=== PATIENT | male | born 1955 | race Two or more races ===

== ENCOUNTER 2016-07-22 15:16 | Inpatient (IN) | payer MEDICARE, OTHER ==
[~2016-07-22] VITALS: Ht 188 cm; Wt 121.1 kg
[2016-07-22 15:45] VITALS: BP 130/87
--- NOTE | 2016-07-22 15:45 | NUR ---
ADMISSION NOTES/ PATIENT DIRECT ADMIT BROUGHT BY AMBULANCE, 60 Y/OLD ON 5150 HOLD DX OF SCHIZOPHRENIA, PSYCHOSIS NOS, GD. ACCORDING ON HOLD PATIENT NOT TAKING MEDICATION AT HOME, GD. V/S TAKE BP-139/87, P-85, T-98, O2-98 ROOM AIR, R-19. ON FACE TO FACE ASSESSMENT PATIENT A/O X3, NO RESPIRATORY DISTRESS. RAMBLING WHEN TALKS, ANXIOUS, ADMINISTERED ATIVAN 1 MG PO PRN, SKIN ASSESSMENT DONE, PICTURE TAKEN, MRSA OF NARES SWAB TAKEN, NEEDS ATTENDED AND ANTICIPATED. PATIENT HAS POOR MOBILITY, USING URINAL, CALL GARCIA NEAR TO REACH, SIDE RAILS UP X3. DR BEY, AND DR GUPTA AWARE OF NEW PATIENT , AND NEW MEDICATION. CONTINUED MONITORING.
[2016-07-22] MEDS ORDERED: MAGNESIUM HYDROXIDE 30 ML UDC PO PRN (16:00)
[2016-07-22] MEDS ORDERED: MAG HYDROX/AL HYDROX/SIMETH 30 ML UDC PO PRN (16:00)
[2016-07-22] MEDS: LORAZEPAM 0.5 MG TABLET PO PRN (16:44)
--- NOTE | 2016-07-22 16:44 | NUR ---
ADMINISTERED ATIVAN 1 MG PO PRN FOR ANXIETY, PARANOIA, PRESCRIBED, V/S TAKEN BP-130/87, P-98, CONTINUED MONITORING.
[2016-07-22] MEDS ORDERED: ATEN50TA PO (17:29)
[2016-07-22] MEDS ORDERED: DIVA500T7 PO (17:29)
[2016-07-22] MEDS ORDERED: BENZ1TAB7 PO (17:29)
[2016-07-22] MEDS ORDERED: HYDR-552 PO (17:29)
[2016-07-22] MEDS ORDERED: LOSA1TAB39 PO (17:29)
[2016-07-22] MEDS ORDERED: RIVA10TA PO (17:29)
[2016-07-22] MEDS ORDERED: OLAN15TA3 PO (17:29)
[2016-07-22] MEDS ORDERED: ASPI-991 PO (17:29)
[2016-07-22] MEDS ORDERED: FURO20TA4 PO (17:29)
[2016-07-22] MEDS ORDERED: Z GUARD REMEDY 2 OZ OINT TP PRN (18:00)
[2016-07-22 20:00] VITALS: BP 141/81
--- NOTE | 2016-07-22 20:00 | NUR ---
RN INITIAL NOTE; PT ON THE BED RESTING WITHOUT ANY DISTRESS . ALERT/ ORIENTED X 2-3 , BREATHING EVEN AND UNLABORED . DENIED ANY PAIN AT THIS TIME. BED IN THE LOWEST/LOCKED POSITION . SAFETY MEASURES APPLIED. WILL CONTINUE TO MONITOR .
[2016-07-22 20:18] VITALS: BP 141/81
--- NOTE | 2016-07-23 06:30 | NUR ---
GPS RN: ALICE [phone]- ATUL WHITLOCK- PATIENT'S SISTER TO NOTIFY REGARDING PATIENT'S ADMISSION. NO ANSWER. NO PROMPT FOR LEAVING VOICEMAIL MESSAGES. WILL ENDORSE TO DAY SHIFT NURSE.
[2016-07-23 06:43] LABS: BASOPHILS % (AUTO) 0.4 % (0.0-2.0); EOSINOPHILS # (AUTO) 0.6 /CMM (0.0-0.7); HEMATOCRIT 34 % (39-51); HEMOGLOBIN 11.1 g/dL (13.5-17.5); LYMPHOCYTES # (AUTO) 1.6 /CMM (0.8-4.8); LYMPHOCYTES % (AUTO) 26.2 % (20.0-44.0); MEAN CORPUSCULAR HEMOGLOBIN 27 PG (26.0-33.0); MEAN CORPUSCULAR HGB CONC 33 g/dl (31.0-36.0); MEAN CORPUSCULAR VOLUME 81 fL (80-96); MONOCYTES # (AUTO) 0.6 /CMM (0.1-1.30); MONOCYTES % (AUTO) 8.9 % (2.0-12.0); NEUTROPHILS # (AUTO) 3.4 /CMM (1.8-8.9); NEUTROPHILS % (AUTO) 54.5 % (43.0-81.0); PLATELET COUNT (AUTO) 350 /CMM (150-450); RDW COEFFICIENT OF VARIATION 16.2 (11.5-15.0); WHITE BLOOD COUNT (AUTO) 6.3 K/uL (4.3-11.0)
--- NOTE | 2016-07-23 06:57 | NUR ---
RN EOS NOTE; NO ANY CHANGE OF CONDITION NOTED DURING THE SHIFT . WILL ENDORSE THE NEXT SHIFT RN FOR CONTINUITY OF CARE .
[2016-07-23 07:00] LABS: BILIRUBIN,TOTAL 0.7 mg/dL (0.2-1.0); CALCIUM, SERUM 8.6 mg/dL (8.5-10.1); CREATININE 0.7 mg/dL (0.6-1.3); POTASSIUM 3.6 mmol/L (3.5-5.1); TOTAL PROTEIN, SERUM 6.6 g/dL (6.4-8.2)
[2016-07-23 07:02] LABS: CHOLESTEROL 146 mg/dL (<200); HDL CHOLESTEROL 34 mg/dL (40-60); LDL 84 mg/dL (0-99); TRIGLYCERIDES 87 mg/dL (30-150)
[2016-07-23 08:00] VITALS: BP 158/89
[2016-07-23] MEDS: LOSARTAN POTASSIUM 50 MG TABLET PO SCH (08:36)
[2016-07-23] MEDS: ASPIRIN EC 81 MG TABLET.DR PO SCH (08:36)
[2016-07-23] MEDS: FUROSEMIDE 20 MG TABLET PO SCH (08:37)
[2016-07-23] MEDS: ATENOLOL 50 MG TABLET PO SCH ×2 (08:37→17:55)
[2016-07-23] MEDS: HYDROCHLOROTHIAZIDE 25 MG TABLET PO SCH (08:38)
[2016-07-23] MEDS ORDERED: Medication Not On Formulary EA (Losartan/Hydrochlorothiazide (Losartan-Hctz 100-25 Mg Ta PO SCH (09:00)
[2016-07-23] MEDS ORDERED: OLANZAPINE 5 MG TABLET PO SCH (12:00)
[2016-07-23] MEDS: BENZTROPINE MESYLATE (1 MG) 1 MG TABLET PO SCH (12:55)
[2016-07-23] MEDS: OLANZAPINE 5 MG TABLET PO SCH ×2 (12:55→17:53)
[2016-07-23] MEDS ORDERED: DIVALPROEX SODIUM 500 MG TABLET.DR PO SCH (13:00)
[2016-07-23] MEDS: DIVALPROEX SODIUM 250 MG TABLET.DR PO SCH ×2 (13:00→17:53)
--- NOTE | 2016-07-23 14:50 | NUR ---
Initial DC Plan: Patient resides at [address] [place] [address]; [phone] and wants to return home when ready for discharge. Sw attempted to contact the patient's sister (Lorin Jesus- [phone]) but she was unavailable and SW left a message with her contact details. SW will attempt again at a later time. SW will help form a safe and proper discharge. Patient will be given smoking cessation resources prior to discharge.
[2016-07-23 16:00] VITALS: BP 164/100
[2016-07-23] MEDS: RIVAROXABAN 10 MG TABLET PO SCH (17:54)
[2016-07-23 20:00] VITALS: BP 160/92
[2016-07-23] MEDS: ACETAMINOPHEN 325 MG TABLET PO PRN (21:59)
[2016-07-24 08:00] VITALS: BP 150/98
[2016-07-24] MEDS: LOSARTAN POTASSIUM 50 MG TABLET PO SCH (09:05)
[2016-07-24] MEDS: BENZTROPINE MESYLATE (1 MG) 1 MG TABLET PO SCH (09:05)
[2016-07-24] MEDS: DIVALPROEX SODIUM 250 MG TABLET.DR PO SCH ×3 (09:06→17:00)
[2016-07-24] MEDS: ASPIRIN EC 81 MG TABLET.DR PO SCH (09:06)
[2016-07-24] MEDS: FUROSEMIDE 20 MG TABLET PO SCH (09:06)
[2016-07-24] MEDS: ATENOLOL 50 MG TABLET PO SCH ×2 (09:06→17:00)
[2016-07-24] MEDS: OLANZAPINE 5 MG TABLET PO SCH (09:06)
[2016-07-24] MEDS: HYDROCHLOROTHIAZIDE 25 MG TABLET PO SCH (09:07)
[2016-07-24 16:00] VITALS: BP 125/76
[2016-07-24] MEDS: RIVAROXABAN 10 MG TABLET PO SCH (17:00)
[2016-07-24] MEDS: FLUPHENAZINE HCL 10 MG TABLET PO SCH (17:00)
[2016-07-24 20:56] VITALS: BP 139/83
[2016-07-24] MEDS: HYDROCODONE/APAP 5/325MG 1 EACH TABLET PO PRN (21:41)
[2016-07-25] MEDS: FLUPHENAZINE HCL 10 MG TABLET PO SCH ×2 (08:32→16:22)
[2016-07-25 08:33] VITALS: BP 152/88
[2016-07-25] MEDS: FUROSEMIDE 20 MG TABLET PO SCH (08:33)
[2016-07-25] MEDS: BENZTROPINE MESYLATE (1 MG) 1 MG TABLET PO SCH (08:33)
[2016-07-25] MEDS: DIVALPROEX SODIUM 250 MG TABLET.DR PO SCH ×3 (08:33→16:22)
[2016-07-25] MEDS: LOSARTAN POTASSIUM 50 MG TABLET PO SCH (08:33)
[2016-07-25] MEDS: ATENOLOL 50 MG TABLET PO SCH ×2 (08:33→16:28)
[2016-07-25] MEDS: HYDROCHLOROTHIAZIDE 25 MG TABLET PO SCH (08:33)
[2016-07-25] MEDS: ASPIRIN EC 81 MG TABLET.DR PO SCH (08:33)
--- NOTE | 2016-07-25 09:11 | NUR ---
WOUND CARE CONSULT: PT PRESENTS WITH SCABS AND SCARS, PRESENT ON ADMISSION. PT NOTED TO HAVE VERY DRY THICKENED SKIN TO LOWER LEGS AND FEET. RESOLVING EDEMA NOTED. LEGS ELEVATED. RECOMMENDATIONS MADE FOR EUCERIN CREAM AND SKIN PROTECTION. DISCUSSED WITH NURSING STAFF. WILL SEE PRN. Addendum: 07/25/16 at 0913 by CHARLEEN AMAYA WNDNU Amended: Links added.
[2016-07-25] MEDS ORDERED: MINERAL OIL/PETROLATUM,WHITE 120 GM JAR TP PRN (09:30)
--- NOTE | 2016-07-25 12:19 | NUR ---
Per psychiatrist, patient will be ready for discharge on Saturday. Per the patient, his sister Lorin Jesus ([phone]) is able to pick him up and sw called her but she did not answer. SW left her contact information and will try again at a later time. Patient refusing placement at this time and wants to return to his apartment in [place].
[2016-07-25 15:43] VITALS: BP 134/87
[2016-07-25] MEDS: RIVAROXABAN 10 MG TABLET PO SCH (16:23)
[2016-07-25 19:45] VITALS: BP 145/79
[2016-07-25 19:56] VITALS: BP 145/79
[2016-07-25] MEDS: HYDROCODONE/APAP 5/325MG 1 EACH TABLET PO PRN (22:59)
[2016-07-26 08:00] VITALS: BP 138/79
[2016-07-26] MEDS: HYDROCHLOROTHIAZIDE 25 MG TABLET PO SCH (08:33)
[2016-07-26] MEDS: ATENOLOL 50 MG TABLET PO SCH ×2 (08:34→17:39)
[2016-07-26] MEDS: ASPIRIN EC 81 MG TABLET.DR PO SCH (08:34)
[2016-07-26] MEDS: LOSARTAN POTASSIUM 50 MG TABLET PO SCH (08:34)
[2016-07-26] MEDS: FUROSEMIDE 20 MG TABLET PO SCH (08:34)
[2016-07-26] MEDS: FLUPHENAZINE HCL 10 MG TABLET PO SCH ×2 (08:34→17:38)
[2016-07-26] MEDS: BENZTROPINE MESYLATE (1 MG) 1 MG TABLET PO SCH (08:34)
[2016-07-26] MEDS: DIVALPROEX SODIUM 250 MG TABLET.DR PO SCH ×3 (08:35→17:38)
--- NOTE | 2016-07-26 12:05 | NUR ---
Faxed referral to [facility] ([address] [place] [address] [address] [facility]; FAX: [phone]) and [facility] ([address], [place] [address] FAX: [phone]). SW will follow up.
--- NOTE | 2016-07-26 14:50 | NUR ---
Per CJ at [facility] ([address] [place] [address] [address] [facility]; FAX: [phone]) pt .is accepted pending a note stating that pt. is compliant with medications. LAXMI will fax.
--- NOTE | 2016-07-26 15:28 | NUR ---
Patient denying placement at this time and revisited this with the patient. He is adamantly denying placement and wants to return home.
[2016-07-26 16:15] VITALS: BP 121/70
[2016-07-26] MEDS: RIVAROXABAN 10 MG TABLET PO SCH (17:40)
[2016-07-26] MEDS: HYDROCODONE/APAP 5/325MG 1 EACH TABLET PO PRN (18:09)
--- NOTE | 2016-07-26 18:10 | NUR ---
ADMINISTERED NARCO 5/325 MG PO PRN FOR CHRONIC GENERALIZED PAIN 09/20, PER PATIENT REQUEST, V/S TAKE BP-128/75, P-90, CONTINUED MONITORING.
--- NOTE | 2016-07-26 19:17 | NUR ---
GPS/RN NOTE: PATIENT AWAKE, ALERT, ORIENTED X3, RESPONDS WHEN ENGAGED, INITIATES CONVERSATION. NO ACUTE DISTRESS NOTED.
[2016-07-26 20:00] VITALS: BP 106/65
[2016-07-27] MEDS: TEMAZEPAM 7.5 MG CAPSULE PO PRN ×2 (01:03→21:17)
--- NOTE | 2016-07-27 01:03 | NUR ---
GPS/RN NOTE: PATIENT STILL AWKE, TEMAZEPAM 7.5 MG CAP 1 PO GIVEN.
[2016-07-27 06:42] LABS: BASOPHILS % (AUTO) 0.4 % (0.0-2.0); EOSINOPHILS # (AUTO) 0.8 /CMM (0.0-0.7); EOSINOPHILS % (AUTO) 9.7 % (0.0-6.0); HEMATOCRIT 39 % (39-51); HEMOGLOBIN 12.5 g/dL (13.5-17.5); LYMPHOCYTES # (AUTO) 2.3 /CMM (0.8-4.8); MEAN CORPUSCULAR HEMOGLOBIN 27 PG (26.0-33.0); MEAN CORPUSCULAR HGB CONC 32 g/dl (31.0-36.0); MEAN CORPUSCULAR VOLUME 82 fL (80-96); MONOCYTES # (AUTO) 0.7 /CMM (0.1-1.30); MONOCYTES % (AUTO) 9.2 % (2.0-12.0); NEUTROPHILS # (AUTO) 4.2 /CMM (1.8-8.9); NEUTROPHILS % (AUTO) 52.7 % (43.0-81.0); PLATELET COUNT (AUTO) 351 /CMM (150-450); RDW COEFFICIENT OF VARIATION 16.7 (11.5-15.0); RED BLOOD CELL COUNT(AUTO) 4.71 MIL/uL (4.5-6.0); WHITE BLOOD COUNT (AUTO) 8.1 K/uL (4.3-11.0)
[2016-07-27 06:49] LABS: CALCIUM, SERUM 8.7 mg/dL (8.5-10.1); CREATININE 0.9 mg/dL (0.6-1.3); POTASSIUM 3.9 mmol/L (3.5-5.1)
[2016-07-27 08:00] VITALS: BP 108/63
[2016-07-27] MEDS: DIVALPROEX SODIUM 250 MG TABLET.DR PO SCH ×3 (08:38→17:19)
[2016-07-27] MEDS: BENZTROPINE MESYLATE (1 MG) 1 MG TABLET PO SCH (08:39)
[2016-07-27] MEDS: LOSARTAN POTASSIUM 50 MG TABLET PO SCH (08:39)
[2016-07-27] MEDS: ASPIRIN EC 81 MG TABLET.DR PO SCH (08:39)
[2016-07-27] MEDS: HYDROCHLOROTHIAZIDE 25 MG TABLET PO SCH (08:39)
[2016-07-27] MEDS: FUROSEMIDE 20 MG TABLET PO SCH (08:40)
[2016-07-27] MEDS: FLUPHENAZINE HCL 10 MG TABLET PO SCH ×2 (08:40→17:19)
[2016-07-27] MEDS: ATENOLOL 50 MG TABLET PO SCH ×2 (08:41→17:00)
--- NOTE | 2016-07-27 11:25 | NUR ---
LAXMI met with the patient and he still is refusing placement at this time, stating he wants to go home. LAXMI has been attempting to call the patient's sister Lorin Jesus [phone] however she has been unresponsive and has not called the SW back from the earlier messages left on her voicemail. Patient stated he only has about $80 to contribute to his ride back home and SW to explore transportation options for the patient.
[2016-07-27] MEDS: ACETAMINOPHEN 325 MG TABLET PO PRN (12:30)
--- NOTE | 2016-07-27 12:32 | NUR ---
GPS RN: PATIENT ASKED FOR TYLENOL FOR C/O BACK PAIN RATED 7/10. ADMINISTERED TYLENOL 650MG PO ORDERED. CONTINUE TO MONITOR.
--- NOTE | 2016-07-27 12:38 | NUR ---
Patient scheduled for discharge for Saturday07/27/2016. LAXMI attempted to contact the patient's sister Lorin Jesus once again but was unsuccessful. Patient able to pay $80 for his transport back home and administration ok'd [employer] transportation for this patient (as they will have to pay the remaining of the $150). Spoke to Javi from [employer] who stated that he will work on scheduling the transportation for the patient and will notify LAXMI of the time. Addendum: 07/30/16 at 1121 by MIRZA HAIR Discharged was pushed to 07/31/2016. Will contact [employer] to schedule transportation.
--- NOTE | 2016-07-27 12:47 | NUR ---
Patient informed that he was accepted to [facility] ([address] [place] [address] [address] [facility]; FAX: [phone]) per however he is still refusing placement at this time and wants to go home. [employer] transportation to be arranged for this patient.
--- NOTE | 2016-07-27 12:52 | NUR ---
Followed up with Mitzy from [facility] ([facility] [address], [place] [address] FAX: [phone]) who stated they are unable to accept the patient as he currently has no skilled needs.
[2016-07-27 16:00] VITALS: BP 106/58
[2016-07-27] MEDS: RIVAROXABAN 10 MG TABLET PO SCH (17:21)
[2016-07-27 20:00] VITALS: BP 109/60
[2016-07-27] MEDS: LORAZEPAM 0.5 MG TABLET PO PRN (20:23)
[2016-07-28] MEDS: HYDROCODONE/APAP 5/325MG 1 EACH TABLET PO PRN (01:36)
[2016-07-28 07:52] VITALS: BP 122/76
[2016-07-28] MEDS: FUROSEMIDE 20 MG TABLET PO SCH (08:19)
[2016-07-28] MEDS: BENZTROPINE MESYLATE (1 MG) 1 MG TABLET PO SCH (08:19)
[2016-07-28] MEDS: FLUPHENAZINE HCL 10 MG TABLET PO SCH ×2 (08:19→17:25)
[2016-07-28] MEDS: DIVALPROEX SODIUM 250 MG TABLET.DR PO SCH ×3 (08:19→17:26)
[2016-07-28] MEDS: ACETAMINOPHEN 325 MG TABLET PO PRN (08:19)
[2016-07-28] MEDS: ASPIRIN EC 81 MG TABLET.DR PO SCH (08:19)
[2016-07-28] MEDS: LOSARTAN POTASSIUM 50 MG TABLET PO SCH (08:20)
[2016-07-28] MEDS: HYDROCHLOROTHIAZIDE 25 MG TABLET PO SCH (08:20)
[2016-07-28] MEDS: ATENOLOL 50 MG TABLET PO SCH ×2 (08:20→17:26)
--- NOTE | 2016-07-28 08:20 | NUR ---
GPS RN: PATIENT ASKED FOR TYLENOL FOR C/O BACK PAIN RATED 7/10. ADMINISTERED TYLENOL 650MG PO ORDERED. CONTINUE TO MONITOR.
[2016-07-28 16:05] VITALS: BP 124/72
[2016-07-28] MEDS: RIVAROXABAN 10 MG TABLET PO SCH (17:25)
--- NOTE | 2016-07-28 19:35 | NUR ---
GPS/COMMERCIAL SHEET METAL FOREMAN; RECEIVED PT IN BED AWAKE, ALERT AND VERBALLY RESPONSIVE. NO MENTIONED OF ANY PAIN. BREATHING NON LABORED. NO S/S OF DISTRESS. PT ASKING ORANGE JUICE, APPLE JUICE I TOLD THE PT I WILL COME BACK FOR THE JUICE. BED ON LOWER POSITION AND LOCKED FOR SAFETY. SIDE RAILS ARE UP FOR SAFETY. WILL CONTINUE TO MONITOR.
[2016-07-28 20:00] VITALS: BP 118/65
--- NOTE | 2016-07-28 20:00 | NUR ---
GPS/STONE SPREADER OPERATOR; JUICES WERE GIVEN TO THE PT. BY THE [facility].
[2016-07-29] MEDS: HYDROCODONE/APAP 5/325MG 1 EACH TABLET PO PRN ×2 (01:43→17:39)
--- NOTE | 2016-07-29 01:45 | NUR ---
GPS/AIRFRAME AND POWERPLANT TECHNICIAN; AT 0143 NORCO 5-325 MG 1 TAB. PO Q6 PRN GIVEN FOR C/O NECK PAIN. WILL RE ASSESS.
--- NOTE | 2016-07-29 02:15 | NUR ---
GPS/BLOOD BANK LABORATORY TECHNICIAN; PT SLEEPING AT THIS TIME. BREATHING NON LABORED AND EVEN.
[2016-07-29] MEDS: FUROSEMIDE 20 MG TABLET PO SCH (08:43)
[2016-07-29] MEDS: LOSARTAN POTASSIUM 50 MG TABLET PO SCH (08:43)
[2016-07-29] MEDS: ASPIRIN EC 81 MG TABLET.DR PO SCH (08:44)
[2016-07-29] MEDS: ATENOLOL 50 MG TABLET PO SCH ×2 (08:44→17:33)
[2016-07-29] MEDS: HYDROCHLOROTHIAZIDE 25 MG TABLET PO SCH (08:44)
[2016-07-29] MEDS: BENZTROPINE MESYLATE (1 MG) 1 MG TABLET PO SCH (08:44)
[2016-07-29] MEDS: FLUPHENAZINE HCL 10 MG TABLET PO SCH ×2 (08:45→17:33)
[2016-07-29] MEDS: DIVALPROEX SODIUM 250 MG TABLET.DR PO SCH ×3 (08:45→17:31)
[2016-07-29 09:41] VITALS: BP 136/60
[2016-07-29 10:32] VITALS: BP 136/60
[2016-07-29 16:14] VITALS: BP 98/66
[2016-07-29] MEDS: RIVAROXABAN 10 MG TABLET PO SCH (17:36)
[2016-07-29 20:00] VITALS: BP 121/69
--- NOTE | 2016-07-30 00:31 | NUR ---
Pt has been anxious, mumbling mostly, easily irritable, anhedonic, paranoid, & with depressed mood.
[2016-07-30 06:58] LABS: BASOPHILS % (AUTO) 0.4 % (0.0-2.0); EOSINOPHILS # (AUTO) 0.6 /CMM (0.0-0.7); HEMATOCRIT 38 % (39-51); HEMOGLOBIN 12.4 g/dL (13.5-17.5); LYMPHOCYTES # (AUTO) 2.1 /CMM (0.8-4.8); LYMPHOCYTES % (AUTO) 32.3 % (20.0-44.0); MEAN CORPUSCULAR HEMOGLOBIN 26 PG (26.0-33.0); MEAN CORPUSCULAR HGB CONC 32 g/dl (31.0-36.0); MEAN CORPUSCULAR VOLUME 82 fL (80-96); MONOCYTES # (AUTO) 0.6 /CMM (0.1-1.30); MONOCYTES % (AUTO) 9.8 % (2.0-12.0); NEUTROPHILS % (AUTO) 47.5 % (43.0-81.0); PLATELET COUNT (AUTO) 332 /CMM (150-450); RDW COEFFICIENT OF VARIATION 16.7 (11.5-15.0); RED BLOOD CELL COUNT(AUTO) 4.69 MIL/uL (4.5-6.0); WHITE BLOOD COUNT (AUTO) 6.4 K/uL (4.3-11.0)
[2016-07-30 07:21] LABS: ALBUMIN 3.2 g/dL (3.4-5.0); BILIRUBIN,TOTAL 0.6 mg/dL (0.2-1.0); CALCIUM, SERUM 8.9 mg/dL (8.5-10.1); CREATININE 0.7 mg/dL (0.6-1.3); MAGNESIUM 1.8 mg/dL (1.8-2.4); POTASSIUM 4.1 mmol/L (3.5-5.1)
[2016-07-30 08:00] VITALS: BP 128/63
[2016-07-30] MEDS: ASPIRIN EC 81 MG TABLET.DR PO SCH (08:37)
[2016-07-30] MEDS: BENZTROPINE MESYLATE (1 MG) 1 MG TABLET PO SCH (08:37)
[2016-07-30] MEDS: LOSARTAN POTASSIUM 50 MG TABLET PO SCH (08:38)
[2016-07-30] MEDS: DIVALPROEX SODIUM 250 MG TABLET.DR PO SCH ×2 (08:38→16:59)
[2016-07-30] MEDS: HYDROCHLOROTHIAZIDE 25 MG TABLET PO SCH (08:39)
[2016-07-30] MEDS: FLUPHENAZINE HCL 10 MG TABLET PO SCH ×2 (08:39→17:01)
[2016-07-30] MEDS: FUROSEMIDE 20 MG TABLET PO SCH (08:39)
[2016-07-30] MEDS: ATENOLOL 50 MG TABLET PO SCH ×2 (08:40→17:02)
--- NOTE | 2016-07-30 09:02 | NUR ---
[id number]: PT IS ANXIOUS, RESTLESS, IRRITABLE, PARANOID ABOUT MEDICATIONS AND SURROUNDINGS, UNCOOPERATIVE AT TIMES, MOCKING STAFF. NOTIFIED DR. BEY ABOUT PT'S BEHAVIOR AND PT WILL BE STAYING ANOTHER DAY. NOTIFIED
--- NOTE | 2016-07-30 10:35 | NUR ---
[id number]: NOTIFIED MOCCASIN SEWER SATURNINO WOO ABOUT LAB RESULTS ON 07/29/16: RBC= 4.24, HGB=13,4M BUN= 20, AST= 86, ALT= 100, BUN= 20, ALKALINE PHOSPHATASE= 142, TOTAL PROTEIN= 8.3. PENDING RETURN PHONE CALL. NOTIFIED MOCCASIN SEWER SATURNINO WOO ABOUT PT HAVING ELIMITE CREAM ON 07/23/16. PENDING RETURN PHONE CALL.
--- NOTE | 2016-07-30 11:03 | NUR ---
Psychiatrist Dr. Eli and LEONEL spoke to the patient regarding placement and his acceptance to [facility] ([address] [place] [address]). Salo Aaron came to speak to the patient but patient still wants go home. Psychiatrist recommended placement but patient still adamantly refusing and stating he wants to go home. Discharge is scheduled for tomorrow. Sister Lorin Jesus ([phone]) feels that he should not go home and that he needs to be placed. She is refusing to pick the patient up to take him home. Leonel notified the patient's sister Lorin Jesus ([phone]) who stated once again that she will not slat pickler the patient. LEONEL will file APS report for the patient prior to going home.
--- NOTE | 2016-07-30 11:28 | NUR ---
This telegraphic typewriter mechanic assisted on this case and spoke with patient's sister, Lorin [phone]. Sister was adamant that patient cannot care for himself and needs placement in a fci facility. This telegraphic typewriter mechanic clarified with her that the social professionals, Mitzy, had found accepting facilities but that pt. was refusing to go there. Since he is not conserved, we cannot force him into a SNF.Sister is not DPOA. She was not happy with discharge plan. Mitzy Nichole [facility] will made APS report. Please refer to her notes.
--- NOTE | 2016-07-30 11:50 | NUR ---
Charge Nurse and patient's nurse spoke to the patient. Patient stating to them that he can cook meals for himself and take care of himself. He is able to walk with a walker or use his wheelchair. He stated he wants to go back to [place] and if he is able to be placed in a facility in [place] then he will go there. SW asked patient's nurse if a PT eval can be requested for this patient and SW to try [facility] again. Informed Mitzy from [facility] ([address], [place] [address] FAX: [phone]) about the patient and that she will re-send paperwork once PT evaluation is done. She stated that this was fine and was also notified that patient is scheduled for discharge tomorrow. She said she will review the paperwork and if he is accepted, she will arrange the transportation for tomorrow.
--- NOTE | 2016-07-30 14:36 | NUR ---
Per technical services coordinator Sheryl from [facility] ( [address], [place] [address] FAX: [phone]) , patient is accepted and they are working on setting up the transportation for the patient. Patient notified and agrees to go to the facility tomorrow. Patient's nurse Ainsley informed that discharge is scheduled for tomorrow and awaiting transportation time from the facility.
--- NOTE | 2016-07-30 14:50 | NUR ---
Contacted the patient's sister Lorin Jesus ([phone]) to notify her that patient has been accepted to [facility] ([address], [place] [address] FAX: [phone]). She is happy with the discharge plan and that the patient agreed to go there. She is happy that he will continue to get the care at the facility.
--- NOTE | 2016-07-30 15:36 | NUR ---
Leonel contacted [facility] APS ([phone]) and spoke to Mely Anthony. Made telephone report indicating patient was on a 5250 for grave disability. patient unable to care for himself at home and notified Mely that patient will be transferred to [facility] tomorrow and there is a concern that patient will want to go home once he arrives. LEONEL faxed SOC [phone] to fax number [phone]. Confirmation page was received and placed in the patient's chart. No confirmation number was given for APS report and Mely stated that they utilize the patient's first and last name as an identifier.
[2016-07-30 16:00] VITALS: BP 118/72
[2016-07-30] MEDS: RIVAROXABAN 10 MG TABLET PO SCH (17:00)
[2016-07-30] MEDS: HYDROCODONE/APAP 5/325MG 1 EACH TABLET PO PRN (17:04)
--- NOTE | 2016-07-30 17:04 | NUR ---
[id number]: GAVE NORCO 5/325 MG PO DUE TO GENERALIZED PAIN 09/20 UPON PT REQUEST AND WILL CONTINUE TO MONITOR FOR EFFECTIVENESS OF MEDICATION
[2016-07-30 22:10] VITALS: BP 119/70
[2016-07-31 08:00] VITALS: BP 134/69
[2016-07-31] MEDS: BENZTROPINE MESYLATE (1 MG) 1 MG TABLET PO SCH (08:19)
[2016-07-31] MEDS: ASPIRIN EC 81 MG TABLET.DR PO SCH (08:19)
[2016-07-31] MEDS: ATENOLOL 50 MG TABLET PO SCH ×2 (08:20→16:35)
[2016-07-31] MEDS: FLUPHENAZINE HCL 10 MG TABLET PO SCH ×2 (08:20→16:34)
[2016-07-31] MEDS: DIVALPROEX SODIUM 250 MG TABLET.DR PO SCH ×2 (08:21→16:33)
[2016-07-31] MEDS: FUROSEMIDE 20 MG TABLET PO SCH (08:22)
[2016-07-31] MEDS: LOSARTAN POTASSIUM 50 MG TABLET PO SCH (08:23)
[2016-07-31] MEDS: HYDROCHLOROTHIAZIDE 25 MG TABLET PO SCH (08:23)
[2016-07-31] MEDS: HYDROCODONE/APAP 5/325MG 1 EACH TABLET PO PRN (08:32)
--- NOTE | 2016-07-31 08:32 | NUR ---
[id number]: GAVE NORCO 5/325 MG PO DUE TO GENERALIZED PAIN 09/20 UPON PT REQUEST AND WILL CONTINUE TO MONITOR FOR EFFECTIVENESS OF MEDICATION
--- NOTE | 2016-07-31 10:00 | NUR ---
[id number]: NOTIFIED ABOUT LAB RESULTS ON 07/30/16: HGB= 12.4, HCT= 38, RDW COEFF OF DEBORAH= 16.7, EOS %= 10.0, ALBUMIN= 3.2. NO NEW ORDERS GIVEN AT THIS TIME
--- NOTE | 2016-07-31 15:07 | NUR ---
[facility] ([address] [place] [address], [place] [address]; [phone]) to pick the patient up between 6:30pm-7:00pm per Mirza from the facility. Addendum: 07/31/16 at 1509 by MIRZA HAIR Adilson Saucedo from the facility
--- NOTE | 2016-07-31 15:17 | NUR ---
Discharge Note: Patient will be discharged to [facility] ([address] [place] [address] FAX: [phone]) via facility transportation between 6:30pm-7pm. For smoking cessation, patient has an appointment at [facility] ([address] [place] [address]; [phone]) on August 03, 2016 at 3pm to address his tobacco use. [facility] is able to provide him with access to smoking cessation groups and free nicotine replacement therapy products- cost is free to attend. Additionally, he was given a referral to [facility] and has an appointment on August 06, 2016 at 4pm ([address] [place] [address]; [phone]) and he must keep a tobacco log for two days prior to attending. Patient was also given meeting date and time for alcohol sobriety maintenance (July at 8pm located at [address], [place]). Patient will also follow up with Dr. Graham, his assigned psychiatrist, on August 01, 2016 at 2pm at [facility]. Facilitated info to IDT team who are in agreement with DC arrangement. The multidisciplinary exitcare form was done, printed, signed, and given to the patient. Patient denying suicidal/homicidal ideations at this time.
[2016-07-31 16:00] VITALS: BP 119/77
[2016-07-31] MEDS: RIVAROXABAN 10 MG TABLET PO SCH (16:34)
[2016-07-31 16:35] VITALS: BP 119/77
--- NOTE | 2016-07-31 19:54 | NUR ---
PATIENT LEFT THE UNIT ALERT,ORIENTED 2-3,NO S/S OF ACUTE DISTRESS NOTED.THE PATIENT WAS PICKED BY THE STAFF TYLER PAIGE FROM [facility] .
== END 2016-07-31 20:00 | DRG 885 ==
LOC: GPS 15:16
PROVIDERS: ADMIT Psychiatry & Neurology Psychiatry; ATTEND Family Medicine
DX: F25.9 Schizoaffective disorder, unspecified (principal); R53.2 Functional quadriplegia; E44.1 Mild protein-calorie malnutrition; D68.59 Other primary thrombophilia; M48.00 Spinal stenosis, site unspecified; D63.8 Anemia in other chronic diseases classified elsewhere; F29 Unspecified psychosis not due to a substance or known physiological condition; I10 Essential (primary) hypertension; E88.09 Other disorders of plasma-protein metabolism, not elsewhere classified; Z73.6 Limitation of activities due to disability; Z86.718 Personal history of other venous thrombosis and embolism; Z79.01 Long term (current) use of anticoagulants; Z68.34 Body mass index [BMI] 34.0-34.9, adult; F31.9 Bipolar disorder, unspecified
CPT/HCPCS: 36415; 80048-TC; 80053-TC; 80061-TC; 80164-TC; 83735-TC; 85025-TC; 87081-TC; 97001-TC; 97530-TC

== ENCOUNTER 2016-10-31 12:13 | Inpatient (IN) | payer MEDICARE, OTHER ==
[~2016-10-31] VITALS: Ht 188 cm; Wt 117.9 kg
[~2016-10-31 12:13] MED LIST: ASPI-991 PO; ATEN50TA PO; BENZ1TAB7 PO; DIVA500T7 PO; FURO20TA4 PO; HYDR-552 PO; LOSA1TAB39 PO; OLAN15TA3 PO; RIVA10TA PO
[2016-10-31 12:30] VITALS: BP 164/96
--- NOTE | 2016-10-31 12:30 | NUR ---
ADMISSION NOTES PATIENT DIRECT ADMIT, BROUGHT BY AMBULANCE 61 Y/OLD MALE ON 5150 HOLD, DX OF PSYCHOSIS NOS, GD. ACCORDING ON HOLD PATIENT GRAVELY DISABLE, THROWING OUT OF FOOD OF THE REFRIGERATOR, TOTALLY UNCAPPED AND NOT TAKING MEDICATION, CUT PHONE WIRES. ON FACE TO FACE ASSESSMENT PATIENT A/O X2/3, DISORGANIZED THOUGHTS, IRRITABLE, NEEDY, GUARDED, TOTAL CARE, BED BOUND, USING URINAL. NO ACUTE RESPIRATORY DISTRESS. PATIENT SKIN ASSESSMENT DONE, PICTURE TAKEN. V/S TAKEN BP 164/96, P-96, R-20, T-98, O2-98 ROOM AIR, MRSA OF SWAB NARES TAKEN, TRIGGERED WOUND CONSULTATION. BELONGING AND CONTRABAND CHECKED. PATIENT RIGHT HAND BOOK GIVEN, AND EXPLAINED TOO. DR BEY, AND DR KABA AWARE OF NEW PATIENT, AND NEW MEDICATION. CONTINUED MONITORING.
[2016-10-31] MEDS ORDERED: MAG HYDROX/AL HYDROX/SIMETH 30 ML UDC PO PRN (13:30)
[2016-10-31] MEDS ORDERED: MAGNESIUM HYDROXIDE 30 ML UDC PO PRN (13:30)
[2016-10-31] MEDS: clonazePAM 0.5 MG TABLET PO PRN (14:50)
--- NOTE | 2016-10-31 14:50 | NUR ---
GPS RN NOTES/ ADMINISTERED KLONOPIN 0.5 MG PO PRN FOR ANXIETY, PARANOIA, V/S TAKEN BP 164/96, P-96, CONTINUED MONITORING.
[2016-10-31] MEDS ORDERED: RIVA10TA PO (15:03)
[2016-10-31] MEDS ORDERED: LOSA1TAB35 PO (15:03)
[2016-10-31] MEDS ORDERED: HYDR-3326 PO (15:03)
[2016-10-31] MEDS ORDERED: ACET-73 PO (15:04)
[2016-10-31] MEDS ORDERED: FLUP5TAB PO (15:04)
[2016-10-31] MEDS ORDERED: MULT1TAB73 PO (15:04)
[2016-10-31] MEDS ORDERED: DIVA500T7 PO (15:04)
[2016-10-31] MEDS ORDERED: NICO1PAT10 TD (15:09)
[2016-10-31 16:16] VITALS: BP 132/99
[2016-10-31] MEDS ORDERED: DIVALPROEX SODIUM 500 MG TABLET.DR PO SCH (17:00)
[2016-10-31] MEDS: DIVALPROEX SODIUM 500 MG TABLET.DR PO SCH ×2 (18:11→20:54)
[2016-10-31] MEDS: HYDROCODONE/APAP 5/325MG 1 EACH TABLET PO PRN (18:12)
[2016-10-31] MEDS: FLUPHENAZINE HCL 10 MG TABLET PO SCH (18:12)
--- NOTE | 2016-10-31 18:12 | NUR ---
GPS RN NOTES/ ADMINISTERED NARCO 10/325 MG PO PRN FOR CHRONIC GENERALIZED PAIN 09/20, PER PATIENT REQUEST, V/S TAKE BP -132/ 99, P-99, CONTINUED MONITORING.
[2016-10-31] MEDS: ATENOLOL 50 MG TABLET PO SCH (18:13)
[2016-10-31] MEDS: RIVAROXABAN 15 MG TABLET PO SCH (18:16)
[2016-10-31 20:00] VITALS: BP 152/72
[2016-10-31 20:18] VITALS: BP 152/72
[2016-10-31] MEDS: TEMAZEPAM 7.5 MG CAPSULE PO PRN (20:54)
[2016-10-31] MEDS: BENZTROPINE MESYLATE (1 MG) 1 MG TABLET PO SCH (20:54)
[2016-10-31] MEDS ORDERED: FLUPHENAZINE HCL 10 MG TABLET PO SCH (21:00)
[2016-11-01] MEDS: HYDROCODONE/APAP 5/325MG 1 EACH TABLET PO PRN ×3 (03:39→20:56)
[2016-11-01] MEDS: BENZTROPINE MESYLATE (1 MG) 1 MG TABLET PO SCH ×3 (04:52→20:55)
[2016-11-01 07:15] LABS: ALBUMIN 2.8 g/dL (3.4-5.0); BILIRUBIN,TOTAL 0.4 mg/dL (0.2-1.0); CALCIUM, SERUM 8.3 mg/dL (8.5-10.1); CREATININE 0.9 mg/dL (0.6-1.3); POTASSIUM 3.9 mmol/L (3.5-5.1); TOTAL PROTEIN, SERUM 6.4 g/dL (6.4-8.2)
[2016-11-01 08:00] VITALS: BP 134/74
[2016-11-01] MEDS: FLUPHENAZINE HCL 10 MG TABLET PO SCH ×2 (08:33→16:03)
[2016-11-01] MEDS: DIVALPROEX SODIUM 500 MG TABLET.DR PO SCH ×2 (08:34→20:55)
[2016-11-01] MEDS: ASPIRIN EC 81 MG TABLET.DR PO SCH (08:34)
[2016-11-01] MEDS: MULTIVITAMINS,THERAGRAN 1 UDTAB TABLET PO SCH (08:35)
[2016-11-01] MEDS: ATENOLOL 50 MG TABLET PO SCH ×2 (08:35→16:03)
[2016-11-01] MEDS: HYDROCHLOROTHIAZIDE 25 MG TABLET PO SCH (08:36)
[2016-11-01] MEDS: FUROSEMIDE 20 MG TABLET PO SCH (08:36)
[2016-11-01] MEDS: clonazePAM 0.5 MG TABLET PO PRN (08:38)
[2016-11-01] MEDS ORDERED: Medication Not On Formulary EA (Losartan/Hydrochlorothiazide (Losartan-Hctz 100-12.5 Mg PO SCH (09:00)
[2016-11-01] MEDS: LOSARTAN POTASSIUM 50 MG TABLET PO SCH (10:15)
[2016-11-01] MEDS: RIVAROXABAN 15 MG TABLET PO SCH ×2 (10:23→16:05)
[2016-11-01 16:00] VITALS: BP 140/63
[2016-11-01] MEDS: ACETAMINOPHEN 325 MG TABLET PO PRN (16:12)
--- NOTE | 2016-11-01 16:12 | NUR ---
RN NOTES PT C/O GENERALIZED PAIN 5/10 WANTS TYLENOL AT THIS TIME , TYLENOL GIVEN PER MD ORDER .
[2016-11-01 17:18] LABS: BASOPHILS % (AUTO) 0.3 % (0.0-2.0); EOSINOPHILS # (AUTO) 0.5 /CMM (0.0-0.7); EOSINOPHILS % (AUTO) 6.6 % (0.0-6.0); HEMATOCRIT 33 % (39-51); HEMOGLOBIN 10.4 g/dL (13.5-17.5); LYMPHOCYTES # (AUTO) 1.7 /CMM (0.8-4.8); LYMPHOCYTES % (AUTO) 20.6 % (20.0-44.0); MEAN CORPUSCULAR HEMOGLOBIN 25 PG (26.0-33.0); MEAN CORPUSCULAR HGB CONC 31 g/dl (31.0-36.0); MEAN CORPUSCULAR VOLUME 80 fL (80-96); MONOCYTES # (AUTO) 0.5 /CMM (0.1-1.30); MONOCYTES % (AUTO) 6.6 % (2.0-12.0); NEUTROPHILS # (AUTO) 5.3 /CMM (1.8-8.9); NEUTROPHILS % (AUTO) 65.9 % (43.0-81.0); PLATELET COUNT (AUTO) 408 /CMM (150-450); RED BLOOD CELL COUNT(AUTO) 4.19 MIL/uL (4.5-6.0); WHITE BLOOD COUNT (AUTO) 8.1 K/uL (4.3-11.0)
[2016-11-01 20:00] VITALS: BP 130/75
[2016-11-01 20:02] VITALS: BP 130/75
[2016-11-01] MEDS: TEMAZEPAM 7.5 MG CAPSULE PO PRN (21:59)
[2016-11-02] MEDS: HYDROCODONE/APAP 5/325MG 1 EACH TABLET PO PRN (05:19)
[2016-11-02] MEDS: BENZTROPINE MESYLATE (1 MG) 1 MG TABLET PO SCH ×3 (05:19→20:38)
[2016-11-02 07:07] LABS: CALCIUM, SERUM 8.8 mg/dL (8.5-10.1); CREATININE 0.7 mg/dL (0.6-1.3); MAGNESIUM 1.9 mg/dL (1.8-2.4); POTASSIUM 4.3 mmol/L (3.5-5.1)
[2016-11-02 07:30] LABS: THYROID STIMULATING HORMONE 0.776 uIU/mL (0.358-3.74)
[2016-11-02 08:33] VITALS: BP 133/78
[2016-11-02] MEDS: DIVALPROEX SODIUM 500 MG TABLET.DR PO SCH ×2 (08:53→20:38)
[2016-11-02] MEDS: ASPIRIN EC 81 MG TABLET.DR PO SCH (08:54)
[2016-11-02] MEDS: FLUPHENAZINE HCL 10 MG TABLET PO SCH ×2 (08:54→17:31)
[2016-11-02] MEDS: MULTIVITAMINS,THERAGRAN 1 UDTAB TABLET PO SCH (08:54)
[2016-11-02] MEDS: ATENOLOL 50 MG TABLET PO SCH ×2 (08:55→17:32)
[2016-11-02] MEDS: FUROSEMIDE 20 MG TABLET PO SCH (08:55)
[2016-11-02] MEDS: HYDROCHLOROTHIAZIDE 25 MG TABLET PO SCH (08:55)
[2016-11-02] MEDS: LOSARTAN POTASSIUM 50 MG TABLET PO SCH (08:56)
[2016-11-02] MEDS: RIVAROXABAN 15 MG TABLET PO SCH ×2 (09:03→17:33)
--- NOTE | 2016-11-02 12:46 | NUR ---
Initial Discharge Note: Patient resides home alone [address] [place] [id number]. ([phone]). Patient would like to return home upon discharge. stucco worker will help form a safe and proper discharge.
[2016-11-02 16:00] VITALS: BP 126/75
[2016-11-02 20:00] VITALS: BP 113/63
[2016-11-02] MEDS: TEMAZEPAM 7.5 MG CAPSULE PO PRN (21:40)
[2016-11-02] MEDS: clonazePAM 0.5 MG TABLET PO PRN (23:07)
[2016-11-03] MEDS: HYDROCODONE/APAP 5/325MG 1 EACH TABLET PO PRN ×2 (03:24→14:19)
[2016-11-03] MEDS: BENZTROPINE MESYLATE (1 MG) 1 MG TABLET PO SCH ×3 (05:06→21:34)
[2016-11-03 08:00] VITALS: BP 134/67
[2016-11-03] MEDS: FLUPHENAZINE HCL 10 MG TABLET PO SCH ×3 (09:22→17:31)
[2016-11-03] MEDS: MULTIVITAMINS,THERAGRAN 1 UDTAB TABLET PO SCH (09:22)
[2016-11-03] MEDS: FUROSEMIDE 20 MG TABLET PO SCH (09:23)
[2016-11-03] MEDS: LOSARTAN POTASSIUM 50 MG TABLET PO SCH (09:23)
[2016-11-03] MEDS: ATENOLOL 50 MG TABLET PO SCH ×2 (09:23→17:31)
[2016-11-03] MEDS: clonazePAM 0.5 MG TABLET PO PRN (09:24)
[2016-11-03] MEDS: DIVALPROEX SODIUM 500 MG TABLET.DR PO SCH ×2 (09:24→21:34)
[2016-11-03] MEDS: ASPIRIN EC 81 MG TABLET.DR PO SCH (09:24)
[2016-11-03] MEDS: HYDROCHLOROTHIAZIDE 25 MG TABLET PO SCH (09:24)
[2016-11-03] MEDS: RIVAROXABAN 15 MG TABLET PO SCH ×2 (14:13→17:32)
[2016-11-03 16:14] VITALS: BP 130/70
[2016-11-03 20:00] VITALS: BP 101/60
--- NOTE | 2016-11-04 00:34 | NUR ---
Pt has been quite anxious, mentally preoccupied, rambling continuously, easily irritable, & fragmented. He needed multiple promptings to take his noc po meds last night.
[2016-11-04] MEDS: BENZTROPINE MESYLATE (1 MG) 1 MG TABLET PO SCH ×3 (05:00→21:40)
[2016-11-04 08:00] VITALS: BP 118/77
[2016-11-04] MEDS: DIVALPROEX SODIUM 500 MG TABLET.DR PO SCH ×2 (10:03→21:40)
[2016-11-04] MEDS: MULTIVITAMINS,THERAGRAN 1 UDTAB TABLET PO SCH (10:03)
[2016-11-04] MEDS: FUROSEMIDE 20 MG TABLET PO SCH (10:03)
[2016-11-04] MEDS: FLUPHENAZINE HCL 10 MG TABLET PO SCH ×2 (10:04→12:37)
[2016-11-04] MEDS: ASPIRIN EC 81 MG TABLET.DR PO SCH (10:05)
[2016-11-04] MEDS: HYDROCHLOROTHIAZIDE 25 MG TABLET PO SCH (10:05)
[2016-11-04] MEDS: ATENOLOL 50 MG TABLET PO SCH ×2 (10:05→16:49)
[2016-11-04] MEDS: LOSARTAN POTASSIUM 50 MG TABLET PO SCH (10:05)
[2016-11-04] MEDS: RIVAROXABAN 15 MG TABLET PO SCH ×2 (11:36→16:50)
[2016-11-04 16:00] VITALS: BP 158/82
[2016-11-04] MEDS: HYDROCODONE/APAP 5/325MG 1 EACH TABLET PO PRN (17:51)
--- NOTE | 2016-11-04 17:51 | NUR ---
ADMINISTERED NARCO 10/325 MG PO PRN FOR CHRONIC GENERALIZED PAIN 10/21, V/S TAKEN BP-158/82, P-90, CONTINUED MONITORING.
[2016-11-04 20:10] VITALS: BP 120/70
[2016-11-04] MEDS: OLANZAPINE 5 MG TABLET PO SCH (20:27)
[2016-11-04] MEDS: TEMAZEPAM 7.5 MG CAPSULE PO PRN (22:28)
[2016-11-05] MEDS: BENZTROPINE MESYLATE (1 MG) 1 MG TABLET PO SCH ×3 (04:35→21:00)
[2016-11-05 07:45] VITALS: BP 108/63
[2016-11-05] MEDS: MULTIVITAMINS,THERAGRAN 1 UDTAB TABLET PO SCH (08:07)
[2016-11-05] MEDS: HYDROCHLOROTHIAZIDE 25 MG TABLET PO SCH (08:07)
[2016-11-05] MEDS: DIVALPROEX SODIUM 500 MG TABLET.DR PO SCH (08:07)
[2016-11-05] MEDS: FLUPHENAZINE HCL 10 MG TABLET PO SCH ×2 (08:08→12:43)
[2016-11-05] MEDS: ASPIRIN EC 81 MG TABLET.DR PO SCH (08:08)
[2016-11-05] MEDS: ATENOLOL 50 MG TABLET PO SCH ×2 (08:08→17:48)
[2016-11-05] MEDS: FUROSEMIDE 20 MG TABLET PO SCH (08:08)
[2016-11-05] MEDS: RIVAROXABAN 15 MG TABLET PO SCH ×3 (09:00→17:49)
[2016-11-05] MEDS: LOSARTAN POTASSIUM 50 MG TABLET PO SCH (09:04)
[2016-11-05] MEDS: ACETAMINOPHEN 325 MG TABLET PO PRN (12:59)
--- NOTE | 2016-11-05 14:55 | NUR ---
grain mill worker faxed initial review packet to [facility] [address] [address] ( / ). grain mill worker will follow-up.
[2016-11-05 15:41] VITALS: BP 122/67
[2016-11-05 19:31] VITALS: BP 132/80
[2016-11-05] MEDS: OLANZAPINE 5 MG TABLET PO SCH (20:57)
[2016-11-05] MEDS: DIVALPROEX SODIUM 125 MG TABLET.DR PO SCH (21:22)
[2016-11-05] MEDS: HYDROCODONE/APAP 5/325MG 1 EACH TABLET PO PRN (21:23)
[2016-11-06] MEDS: BENZTROPINE MESYLATE (1 MG) 1 MG TABLET PO SCH ×3 (04:46→21:30)
[2016-11-06 08:00] VITALS: BP 131/81
[2016-11-06] MEDS: MULTIVITAMINS,THERAGRAN 1 UDTAB TABLET PO SCH (08:05)
[2016-11-06] MEDS: FUROSEMIDE 20 MG TABLET PO SCH (08:05)
[2016-11-06] MEDS: ASPIRIN EC 81 MG TABLET.DR PO SCH (08:05)
[2016-11-06] MEDS: ATENOLOL 50 MG TABLET PO SCH ×2 (08:05→16:20)
[2016-11-06] MEDS: LOSARTAN POTASSIUM 50 MG TABLET PO SCH (08:06)
[2016-11-06] MEDS: OLANZAPINE 5 MG TABLET PO SCH ×3 (08:06→20:45)
[2016-11-06] MEDS: RIVAROXABAN 15 MG TABLET PO SCH ×2 (08:17→16:35)
[2016-11-06] MEDS: HYDROCHLOROTHIAZIDE 25 MG TABLET PO SCH (08:22)
[2016-11-06] MEDS: DIVALPROEX SODIUM 500 MG TABLET.DR PO SCH (08:22)
--- NOTE | 2016-11-06 13:29 | NUR ---
workers compensation examiner spoke to Sheryl from [facility] [address] [place] [address] ( / ), who confirmed that they are able to accept the patient upon discharge. workers compensation examiner will follow-up.
--- NOTE | 2016-11-06 13:32 | NUR ---
hot mill worker received a call from [facility] administrator social welfare Natalya Lion ([phone]) who stated that patient has an open case and she was inquiring of his discharge plan. hot mill worker informed her that patient had been accepted to [facility] [address] [address] [address] ( / ) and the plan is to discharge him to the facility. APS administrator social welfare requested to be informed when patient is discharged. hot mill worker will follow-up.
[2016-11-06 16:00] VITALS: BP 122/78
[2016-11-06 20:00] VITALS: BP 112/77
[2016-11-06] MEDS: DIVALPROEX SODIUM 125 MG TABLET.DR PO SCH (21:32)
[2016-11-06] MEDS: HYDROCODONE/APAP 5/325MG 1 EACH TABLET PO PRN (22:28)
[2016-11-07] MEDS: BENZTROPINE MESYLATE (1 MG) 1 MG TABLET PO SCH ×3 (04:21→21:03)
[2016-11-07] MEDS: HYDROCODONE/APAP 5/325MG 1 EACH TABLET PO PRN (06:46)
[2016-11-07 08:00] VITALS: BP 110/80
[2016-11-07] MEDS: FUROSEMIDE 20 MG TABLET PO SCH (08:19)
[2016-11-07] MEDS: OLANZAPINE 5 MG TABLET PO SCH ×3 (08:20→20:42)
[2016-11-07] MEDS: ATENOLOL 50 MG TABLET PO SCH ×2 (08:20→17:06)
[2016-11-07] MEDS: ASPIRIN EC 81 MG TABLET.DR PO SCH (08:20)
[2016-11-07] MEDS: HYDROCHLOROTHIAZIDE 25 MG TABLET PO SCH (08:21)
[2016-11-07] MEDS: RIVAROXABAN 15 MG TABLET PO SCH ×2 (08:22→17:07)
[2016-11-07] MEDS: DIVALPROEX SODIUM 500 MG TABLET.DR PO SCH (08:24)
[2016-11-07] MEDS: LOSARTAN POTASSIUM 50 MG TABLET PO SCH (08:24)
[2016-11-07] MEDS: MULTIVITAMINS,THERAGRAN 1 UDTAB TABLET PO SCH (08:24)
--- NOTE | 2016-11-07 10:34 | NUR ---
RN-CO: Patient refused grooming and hygiene this morning including diaper change. Patient yelled and screamed at the INSTRUMENT MAKER APPRENTICE and charge nurse.
[2016-11-07 16:00] VITALS: BP 105/64
[2016-11-07 20:07] VITALS: BP 115/70
[2016-11-07] MEDS: DIVALPROEX SODIUM 125 MG TABLET.DR PO SCH (21:03)
[2016-11-07] MEDS: ACETAMINOPHEN 325 MG TABLET PO PRN (21:25)
[2016-11-08] MEDS: BENZTROPINE MESYLATE (1 MG) 1 MG TABLET PO SCH ×3 (04:59→21:03)
[2016-11-08] MEDS: HYDROCODONE/APAP 5/325MG 1 EACH TABLET PO PRN (05:58)
[2016-11-08 08:00] VITALS: BP 108/65
[2016-11-08] MEDS: DIVALPROEX SODIUM 500 MG TABLET.DR PO SCH (08:12)
[2016-11-08] MEDS: FUROSEMIDE 20 MG TABLET PO SCH (08:12)
[2016-11-08] MEDS: ASPIRIN EC 81 MG TABLET.DR PO SCH (08:13)
[2016-11-08] MEDS: HYDROCHLOROTHIAZIDE 25 MG TABLET PO SCH (08:13)
[2016-11-08] MEDS: OLANZAPINE 5 MG TABLET PO SCH ×2 (08:13→12:01)
[2016-11-08] MEDS: MULTIVITAMINS,THERAGRAN 1 UDTAB TABLET PO SCH (08:13)
[2016-11-08] MEDS: ATENOLOL 50 MG TABLET PO SCH ×2 (08:14→16:18)
[2016-11-08] MEDS: LOSARTAN POTASSIUM 50 MG TABLET PO SCH (08:14)
[2016-11-08] MEDS: RIVAROXABAN 15 MG TABLET PO SCH ×2 (08:18→16:19)
[2016-11-08 16:16] VITALS: BP 124/67
[2016-11-08] MEDS: DIVALPROEX SODIUM 125 MG TABLET.DR PO SCH (16:18)
[2016-11-08] MEDS: OLANZAPINE 10 MG TABLET PO SCH (16:20)
[2016-11-08 20:00] VITALS: BP 126/81
[2016-11-08] MEDS: TEMAZEPAM 7.5 MG CAPSULE PO PRN (22:08)
[2016-11-09] MEDS: BENZTROPINE MESYLATE (1 MG) 1 MG TABLET PO SCH ×2 (05:44→12:38)
[2016-11-09 06:43] LABS: BASOPHILS % (AUTO) 0.4 % (0.0-2.0); EOSINOPHILS # (AUTO) 0.7 /CMM (0.0-0.7); EOSINOPHILS % (AUTO) 9.3 % (0.0-6.0); HEMATOCRIT 39 % (39-51); HEMOGLOBIN 12.3 g/dL (13.5-17.5); LYMPHOCYTES # (AUTO) 1.6 /CMM (0.8-4.8); LYMPHOCYTES % (AUTO) 21.6 % (20.0-44.0); MEAN CORPUSCULAR HEMOGLOBIN 25 PG (26.0-33.0); MEAN CORPUSCULAR HGB CONC 32 g/dl (31.0-36.0); MEAN CORPUSCULAR VOLUME 80 fL (80-96); MONOCYTES # (AUTO) 0.6 /CMM (0.1-1.30); MONOCYTES % (AUTO) 8.3 % (2.0-12.0); NEUTROPHILS # (AUTO) 4.6 /CMM (1.8-8.9); NEUTROPHILS % (AUTO) 60.4 % (43.0-81.0); PLATELET COUNT (AUTO) 385 /CMM (150-450); RED BLOOD CELL COUNT(AUTO) 4.85 MIL/uL (4.5-6.0); WHITE BLOOD COUNT (AUTO) 7.5 K/uL (4.3-11.0)
[2016-11-09 07:10] LABS: CALCIUM, SERUM 9.2 mg/dL (8.5-10.1); CREATININE 0.8 mg/dL (0.6-1.3); POTASSIUM 4.3 mmol/L (3.5-5.1)
[2016-11-09 08:00] VITALS: BP 132/91
[2016-11-09] MEDS: MULTIVITAMINS,THERAGRAN 1 UDTAB TABLET PO SCH (08:26)
[2016-11-09] MEDS: DIVALPROEX SODIUM 125 MG TABLET.DR PO SCH (08:26)
[2016-11-09] MEDS: OLANZAPINE 10 MG TABLET PO SCH (08:26)
[2016-11-09] MEDS: ASPIRIN EC 81 MG TABLET.DR PO SCH (08:27)
[2016-11-09] MEDS: LOSARTAN POTASSIUM 50 MG TABLET PO SCH (08:27)
[2016-11-09 08:28] VITALS: BP 132/91
[2016-11-09] MEDS: HYDROCHLOROTHIAZIDE 25 MG TABLET PO SCH (08:28)
[2016-11-09] MEDS: FUROSEMIDE 20 MG TABLET PO SCH (08:28)
[2016-11-09] MEDS: ATENOLOL 50 MG TABLET PO SCH (08:28)
[2016-11-09] MEDS: RIVAROXABAN 15 MG TABLET PO SCH (08:31)
--- NOTE | 2016-11-09 14:02 | NUR ---
Discharge Note: Patient will be discharged to [facility] [address] [place] [address] ([phone]). via facility transportation. Patient does not have any family to contact. Patient's mood and affect are calm and appropriate. Patient denies suicidal and homicidal ideations. Patient will follow-up with psychiatrist Dr. Graham ([phone]) on 11/12/16 at 2:00Pm, in which he will discuss his hx of substance use. Facilitated info to IDT team who are in agreement with discharge arrangement. The multidisciplinary exitcare form was done, printed, signed, and given to the patient.
--- NOTE | 2016-11-09 16:25 | NUR ---
AIR BRAKE ADJUSTER-NOTES PATIENT DISCHARGE TO [facility] TODAY. DR. BEY AND DR. GUPTA MADE AWARE OF PATIENT DISCHARGE AND AGREES WITH ORDERS. REPORT WAS GIVEN TO KRISTINA ( SENIOR FINANCIAL REPORTING ACCOUNTANT). PATIENT DID NOT VERBALIZE SI/HI,DENIES VISUAL/AUDITORY HALLUCINATIONS AT THE TIME OF DISCHARGE. PATIENT STRONGLY REFUSED BODY ASSESSMENT PRIOR TO DISCHARGE DESPITE EXPLANATIONS OF HOSPITAL POLICIES. PER THE FACE SHEET RECORD PT. SISTER ATUL WHITLOCK UNABLE TO REACH DUE TO THE NO. GIVEN WAS NOT A WORKING NO. PATIENT LEFT THE UNIT IN STABLE CONDITION WITH ALL HIS BELONGINGS INCLUDING BACH MONEY OF $90.00, WALLET WITH ID'S, IT WAS WITNESS AND CO SIGN WITH NATALIA ( FACILITY BOILERS INSPECTOR). PATIENT LEFT THE UNIT VIA WHEELCHAIR.
== END 2016-11-09 14:25 | DRG 885 ==
LOC: GPS 12:13
PROVIDERS: ADMIT Psychiatry & Neurology Psychiatry; ATTEND Psychiatry & Neurology Psychiatry
DX: F25.9 Schizoaffective disorder, unspecified (principal); R53.2 Functional quadriplegia; E44.1 Mild protein-calorie malnutrition; F22 Delusional disorders; F29 Unspecified psychosis not due to a substance or known physiological condition; I10 Essential (primary) hypertension; E78.5 Hyperlipidemia, unspecified; D63.8 Anemia in other chronic diseases classified elsewhere; K21.9 Gastro-esophageal reflux disease without esophagitis; M48.00 Spinal stenosis, site unspecified; Z86.718 Personal history of other venous thrombosis and embolism; Z79.899 Other long term (current) drug therapy; Z79.01 Long term (current) use of anticoagulants; F31.9 Bipolar disorder, unspecified
CPT/HCPCS: 36415; 80048-TC; 80053-TC; 80061-TC; 80164-TC; 83540-TC; 83735-TC; 84300-TC; 84443-TC; 85025-TC; 87081-TC